=== PATIENT | female | born 1980 | race Caucasian/White ===

== ENCOUNTER 2018-10-19 01:17 | Observation (INO) ==
[2018-10-19] MEDS ORDERED: *HR* LORazepam 2 MG/ML VIAL IM ONE (01:30)
[2018-10-19] MEDS ORDERED: *HR* LORazepam 2 MG/ML VIAL ONE (01:30)
[2018-10-19] MEDS ORDERED: Haloperidol Lactate 5 MG/ML VIAL ONE (01:30)
[2018-10-19] MEDS ORDERED: Haloperidol Lactate 5 MG/ML VIAL IM ONE (01:30)
--- NOTE | 2018-10-19 02:07 | Emergency Department Note ---
Disposition Clinical Impression: Suicidal ideation Disposition: Still a Patient Condition: Good Referrals: NONE,PCP [Primary Care Provider] - Time of Disposition: 04:33 General Adult HPI - General Stated complaint: SI Time Seen by Provider: 10/19/18 01:24 Source: patient, EMS Mode of arrival: EMS Limitations: no limitations Nursing Notes Reviewed: Yes Vital Signs Reviewed: Yes - History of Present Illness HPI Narrative: Patient is a 38-year-old female who is presenting from [facility] for suicidal ideation. Patient with known history of anxiety and depression brought via EMS. On arrival, patient is combative and agitated. History is obtained from EMS report and [facility] report which states that patient was found on scene in the road stating that she wanted to go to [facility] to be with her mother walking into middle of the road trended to get hit by cars. Patient does admit to smoking marijuana denies any other substance abuse. No auditory or visual hallucinations. She was cooperative for transport however with the patient was told that she had to get into a gown, patient became agitated and would not get into the gown. - Related Data Home Medications Medication Instructions Recorded Confirmed Buprenorphine HCl [Subutex] 8 mg SL DAILY 10/18/18 10/18/18 Allergies Allergy/AdvReac Type Severity Reaction Status Date / Time morphine Allergy Hives Verified 10/18/18 23:06 All systems ED: reviewed and negative except as stated. Review of Systems: As Per HPI Limitations: ROS unobtainable due to patients medical condition Past Medical History - Past Medical History Medical history: Reports: no medical history - Social History Smoking Status: Unknown if ever smoked Physical Exam General: Conversant. No apparent distress. Follow commands. Appears stated age. Eyes: PERRL. No scleral icterus. HENT: Normocephalic and atraumatic. Moist mucus membranes. Cardiovascular: Regular rate and rhythm. Normal S1 and S2. No murmurs appreciated. Normal capillary refill. Pulmonary: Normal and equal breath sounds bilaterally, anteriorly and posteriorly. No wheezes, rales, or rhonchi. Not in respiratory distress. Speaks in full sentences. Abdomen: Soft, nondistended, without tenderness. No bruits or masses. No guarding or rebound. Neuro: Alert and oriented x3. No slurred speech. No focal deficits noted. Skin: No rashes noted on visualized skin. Musculoskeletal: No bony abnormalities visualized. Moves all extremities. Psych: Patient does make appropriate eye contact however is agitated and combative. Course Vital Signs Temperature 97.6 F 10/19/18 02:34 Pulse Rate 82 10/19/18 02:34 Respiratory Rate 16 10/19/18 02:34 Blood Pressure 86/61 10/19/18 02:34 O2 Sat by Pulse Oximetry 95 10/19/18 02:34 Temperature 97.6 F 10/19/18 02:34 Pulse Rate 82 10/19/18 02:34 Respiratory Rate 16 10/19/18 02:34 Blood Pressure 86/61 10/19/18 02:34 O2 Sat by Pulse Oximetry 95 10/19/18 02:34 Oxygen Delivery Oxygen Delivery Room Air Medical Decision Making - MDM Narrative Medical decision making narrative: Patient is a 38-year-old female who is presenting from [facility] via EMS for suicidal ideation. On arrival, patient was initially appropriate and cooperative, however when told that she had to get into a gown and she had was pink slip from height, she became agitated and combative, she was unwilling to put the gown on, therefore she had to be physically restrained in order to be given Haldol 5 mg as well as Ativan 2 mg. She was then placed in a gown, she then became much more cooperative, allowed us to obtain her blood work as well as urine for further analysis. At this point in time patient is sleeping and willing to cooperate. Patient is a medically cleared, blood work does show a leukocytosis, this most likely represents an acute stress reaction, do not feel as though there is an infectious source, patient denies fever or chills, without source on examination. Patient is agreeable to IV fluids, she will be given 1 L at this point in time. Following her fluid bolus, patient has been medically cleared, the IV will be removed and 1A will be called for further evaluation. Patient was signed out to the day team, Dr. Mcleod and Dr. Medrano. - Medical Records Medical records reviewed: Yes I reviewed the patient's medical records. - Lab Data Lab results reviewed: Yes I reviewed the patient's lab results. Result diagrams: 10/19/18 03:51 10/19/18 03:51 Lab Results 08/07/19 08/07/19 08/07/19 Range/Units 03:26 03:26 03:26 WBC (4.3-11.1) K/mcL RBC (3.82-4.97) M/mcL Hgb (11.5-15.4) g/dL Hct (35.3-44.9) % MCV (83.0-100.0) fL MCH (28.0-33.3) pg MCHC (31.6-35.5) g/dL RDW (11.5-14.5) % Plt Count (140-400) K/mcL MPV (9.4-12.4) fL Immature Gran % (0-4) % Seg Neutrophils % % Lymphocytes % % Monocytes % % Eosinophils % % Basophils % % Neutrophils # (1.6-8.9) K/mcL Lymphocytes # (0.6-4.6) K/mcL Monocytes # (0.0-1.3) K/mcL Eosinophils # (0.0-0.6) K/mcL Basophils # (0.0-0.2) K/mcL Sodium (136-145) mEq/L Potassium (3.5-5.1) mEq/L Chloride (98-107) mEq/L Carbon Dioxide (23-29) mEq/L BUN (6-20) mg/dL Creatinine (0.60-1.20) mg/dL Est GFR ( Amer) (> 60) Est GFR (Non-Af Amer) (> 60) BUN/Creatinine Ratio (6-26) Glucose (70-105) mg/dL Calculated Osmolality (280-300) Calcium (8.6-10.3) mg/dL Urine Color Dark Yellow (Yellow) Urine Clarity Hazy A (Clear) Urine pH 5.5 (5.0-8.0) pH Units Ur Specific [place] 1.021 (1.010-1.025) Urine Protein Negative (Neg-Trace) mg/dL Urine Glucose (UA) Normal (Normal) mg/dL Urine Ketones Negative (Negative) mg/dL Urine Blood Negative (Negative) Urine Nitrite Negative (Negative) Urine Bilirubin Negative (Negative) Urine Urobilinogen Normal (Normal) mg/dL Ur Leukocyte Esterase Negative (Negative) Urine Microscopic RBC 0-3 (0-3) per hpf Ur Squamous Epith Cells Many H (None-Few) per lpf Urine Bacteria None Seen (None-Few) per hpf Hyaline Casts None Seen (None-Few) per lpf Urine Test Negative (Negative) Salicylates (15.0-30.0) mg/dL Urine Opiates Screen Negative (Aixudw=310) ng/mL Ur Buprenorphine Scrn Positive H (Cutoff=5) ng/mL Acetaminophen (10-20) mcg/mL Ur Barbiturates Screen Negative (Tbpjqc=602) ng/mL Ur Phencyclidine Scrn Negative (Cutoff=25) ng/mL Ur Amphetamines Screen Negative (Cnluhi=0642) ng/mL U Benzodiazepines Scrn Negative (Ssahvq=565) ng/mL Urine Cocaine Screen Negative (Cutoff= 300) ng/mL U Marijuana (THC) Screen Positive H (Cutoff = 50) ng/mL Ur Drug Screen Interp See Below Ethyl Alcohol (Less than 10) mg/dL 10/19/18 10/19/18 Range/Units 03:51 03:51 WBC 24.7 H (4.3-11.1) K/mcL RBC 5.21 H (3.82-4.97) M/mcL Hgb 15.1 (11.5-15.4) g/dL Hct 46.4 H (35.3-44.9) % MCV 89.1 (83.0-100.0) fL MCH 29.0 (28.0-33.3) pg MCHC 32.5 (31.6-35.5) g/dL RDW 14.4 (11.5-14.5) % Plt Count 235 (140-400) K/mcL MPV 12.4 (9.4-12.4) fL Immature Gran % 0.7 (0-4) % Seg Neutrophils % 72.5 % Lymphocytes % 20.4 % Monocytes % 5.6 % Eosinophils % 0.4 % Basophils % 0.4 % Neutrophils # 17.9 H (1.6-8.9) K/mcL Lymphocytes # 5.0 H (0.6-4.6) K/mcL Monocytes # 1.4 H (0.0-1.3) K/mcL Eosinophils # 0.1 (0.0-0.6) K/mcL Basophils # 0.1 (0.0-0.2) K/mcL Sodium 135 L (136-145) mEq/L Potassium 3.3 L (3.5-5.1) mEq/L Chloride 104 (98-107) mEq/L Carbon Dioxide 24 (23-29) mEq/L BUN 5 L (6-20) mg/dL Creatinine 0.52 L (0.60-1.20) mg/dL Est GFR ( Amer) > 60 (> 60) Est GFR (Non-Af Amer) > 60 (> 60) BUN/Creatinine Ratio 10 (6-26) Glucose 118 H (70-105) mg/dL Calculated Osmolality 278 L (280-300) Calcium 9.4 (8.6-10.3) mg/dL Urine Color (Yellow) Urine Clarity (Clear) Urine pH (5.0-8.0) pH Units Ur Specific [place] (1.010-1.025) Urine Protein (Neg-Trace) mg/dL Urine Glucose (UA) (Normal) mg/dL Urine Ketones (Negative) mg/dL Urine Blood (Negative) Urine Nitrite (Negative) Urine Bilirubin (Negative) Urine Urobilinogen (Normal) mg/dL Ur Leukocyte Esterase (Negative) Urine Microscopic RBC (0-3) per hpf Ur Squamous Epith Cells (None-Few) per lpf Urine Bacteria (None-Few) per hpf Hyaline Casts (None-Few) per lpf Urine Test (Negative) Salicylates < 2.5 L (15.0-30.0) mg/dL Urine Opiates Screen (Uyvgiy=619) ng/mL Ur Buprenorphine Scrn (Cutoff=5) ng/mL Acetaminophen < 10 L (10-20) mcg/mL Ur Barbiturates Screen (Cnywrc=354) ng/mL Ur Phencyclidine Scrn (Cutoff=25) ng/mL Ur Amphetamines Screen (Cwdeew=5405) ng/mL U Benzodiazepines Scrn (Acriaz=842) ng/mL Urine Cocaine Screen (Cutoff= 300) ng/mL U Marijuana (THC) Screen (Cutoff = 50) ng/mL Ur Drug Screen Interp Ethyl Alcohol < 10 (Less than 10) mg/dL
[2018-10-19 03:31] LABS: Bilirubin,Urine Negative (Negative); Blood,Urine Negative (Negative); Color,Urine Dark Yellow (Yellow); Glucose,Urine (UA) Normal (Normal); Ketones,Urine Negative (Negative); Leukocyte Esterase,Urine Negative (Negative); Nitrite,Urine Negative (Negative); PH,Urine 5.5 pH Units (5.0-8.0); Protein,Urine Negative (Neg-Trace); Specific Gravity,Urine 1.021 (1.010-1.025); Urobilinogen,Urine Normal (Normal)
[2018-10-19 03:33] LABS: Bacteria,Urine None Seen per hpf (None-Few); Hyaline Casts,Urine None Seen per lpf (None-Few); RBC,Urine 0-3 per hpf (0-3); Squamous Epithelial Cell,Urine Many per lpf (None-Few)
[2018-10-19 03:35] LABS: Clarity,Urine Hazy (Clear)
--- NOTE | 2018-10-19 03:35 | Emergency Department Note ---
Disposition Clinical Impression: Suicidal ideation, Acute psychosis Leukocytosis Qualifiers: Leukocytosis type: unspecified Qualified Code(s): D72.829 - Elevated white blood cell count, unspecified Disposition: Admitted As Inpatient Condition: Good Time of Disposition: 04:33 General Adult HPI - General Chief complaint: ED Psychiatric Symptoms Stated complaint: SI Time Seen by Provider: 10/19/18 01:24 Source: patient - History of Present Illness Pain Scale: 0 - Related Data Home Medications Medication Instructions Recorded Confirmed Unable To Obtain [Unable to Obtain] 10/19/18 10/19/18 Allergies Allergy/AdvReac Type Severity Reaction Status Date / Time meloxicam Allergy Hives Verified 10/19/18 12:27 morphine Allergy Hives Verified 10/19/18 12:27 Naloxone AdvReac See Verified 10/19/18 12:27 Comments Past Medical History - Past Medical History Medical history: Reports: no medical history - Social History Smoking Status: Unknown if ever smoked Physical Exam - General General appearance: alert Course Vital Signs Temperature 97.6 F 10/19/18 02:34 Pulse Rate 82 10/19/18 02:34 Respiratory Rate 16 10/19/18 02:34 Blood Pressure 86/61 10/19/18 02:34 O2 Sat by Pulse Oximetry 95 10/19/18 02:34 Temperature 98 F 10/19/18 15:54 Pulse Rate 91 10/19/18 15:54 Respiratory Rate 16 10/19/18 15:54 Blood Pressure 115/81 10/19/18 15:54 O2 Sat by Pulse Oximetry 95 10/19/18 15:54 Oxygen Delivery Oxygen Delivery Room Air Medical Decision Making - Lab Data Result diagrams: 10/19/18 09:40 10/19/18 03:51 Lab Results 10/19/18 10/19/18 10/19/18 Range/Units 03:26 03:26 03:26 WBC (4.3-11.1) K/mcL RBC (3.82-4.97) M/mcL Hgb (11.5-15.4) g/dL Hct (35.3-44.9) % MCV (83.0-100.0) fL MCH (28.0-33.3) pg MCHC (31.6-35.5) g/dL RDW (11.5-14.5) % Plt Count (140-400) K/mcL MPV (9.4-12.4) fL Immature Gran % (0-4) % Seg Neutrophils % % Lymphocytes % % Monocytes % % Eosinophils % % Basophils % % Neutrophils # (1.6-8.9) K/mcL Lymphocytes # (0.6-4.6) K/mcL Monocytes # (0.0-1.3) K/mcL Eosinophils # (0.0-0.6) K/mcL Basophils # (0.0-0.2) K/mcL Sodium (136-145) mEq/L Potassium (3.5-5.1) mEq/L Chloride (98-107) mEq/L Carbon Dioxide (23-29) mEq/L BUN (6-20) mg/dL Creatinine (0.60-1.20) mg/dL Est GFR ( Amer) (> 60) Est GFR (Non-Af Amer) (> 60) BUN/Creatinine Ratio (6-26) Glucose (70-105) mg/dL Calculated Osmolality (280-300) Lactic Acid (0.5-2.2) mmol/L Calcium (8.6-10.3) mg/dL Creatine Kinase (30-223) Units/L Urine Color Dark Yellow (Yellow) Urine Clarity Hazy A (Clear) Urine pH 5.5 (5.0-8.0) pH Units Ur Specific [place] 1.021 (1.010-1.025) Urine Protein Negative (Neg-Trace) mg/dL Urine Glucose (UA) Normal (Normal) mg/dL Urine Ketones Negative (Negative) mg/dL Urine Blood Negative (Negative) Urine Nitrite Negative (Negative) Urine Bilirubin Negative (Negative) Urine Urobilinogen Normal (Normal) mg/dL Ur Leukocyte Esterase Negative (Negative) Urine Microscopic RBC 0-3 (0-3) per hpf Ur Squamous Epith Cells Many H (None-Few) per lpf Urine Bacteria None Seen (None-Few) per hpf Hyaline Casts None Seen (None-Few) per lpf Urine Test Negative (Negative) Salicylates (15.0-30.0) mg/dL Urine Opiates Screen Negative (Shkcqw=780) ng/mL Ur Buprenorphine Scrn Positive H (Cutoff=5) ng/mL Acetaminophen (10-20) mcg/mL Ur Barbiturates Screen Negative (Hcrjbe=217) ng/mL Ur Phencyclidine Scrn Negative (Cutoff=25) ng/mL Ur Amphetamines Screen Negative (Pfinxe=1180) ng/mL U Benzodiazepines Scrn Negative (Jvuewe=479) ng/mL Urine Cocaine Screen Negative (Cutoff= 300) ng/mL U Marijuana (THC) Screen Positive H (Cutoff = 50) ng/mL Ur Drug Screen Interp See Below Ethyl Alcohol (Less than 10) mg/dL 10/19/18 10/19/18 10/19/18 Range/Units 03:51 03:51 09:40 WBC 24.7 H 16.3 H (4.3-11.1) K/mcL RBC 5.21 H 4.73 (3.82-4.97) M/mcL Hgb 15.1 13.9 (11.5-15.4) g/dL Hct 46.4 H 41.9 (35.3-44.9) % MCV 89.1 88.6 (83.0-100.0) fL MCH 29.0 29.4 (28.0-33.3) pg MCHC 32.5 33.2 (31.6-35.5) g/dL RDW 14.4 14.6 H (11.5-14.5) % Plt Count 235 204 (140-400) K/mcL MPV 12.4 11.3 (9.4-12.4) fL Immature Gran % 0.7 (0-4) % Seg Neutrophils % 72.5 % Lymphocytes % 20.4 % Monocytes % 5.6 % Eosinophils % 0.4 % Basophils % 0.4 % Neutrophils # 17.9 H (1.6-8.9) K/mcL Lymphocytes # 5.0 H (0.6-4.6) K/mcL Monocytes # 1.4 H (0.0-1.3) K/mcL Eosinophils # 0.1 (0.0-0.6) K/mcL Basophils # 0.1 (0.0-0.2) K/mcL Sodium 135 L (136-145) mEq/L Potassium 3.3 L (3.5-5.1) mEq/L Chloride 104 (98-107) mEq/L Carbon Dioxide 24 (23-29) mEq/L BUN 5 L (6-20) mg/dL Creatinine 0.52 L (0.60-1.20) mg/dL Est GFR ( Amer) > 60 (> 60) Est GFR (Non-Af Amer) > 60 (> 60) BUN/Creatinine Ratio 10 (6-26) Glucose 118 H (70-105) mg/dL Calculated Osmolality 278 L (280-300) Lactic Acid (0.5-2.2) mmol/L Calcium 9.4 (8.6-10.3) mg/dL Creatine Kinase (30-223) Units/L Urine Color (Yellow) Urine Clarity (Clear) Urine pH (5.0-8.0) pH Units Ur Specific [place] (1.010-1.025) Urine Protein (Neg-Trace) mg/dL Urine Glucose (UA) (Normal) mg/dL Urine Ketones (Negative) mg/dL Urine Blood (Negative) Urine Nitrite (Negative) Urine Bilirubin (Negative) Urine Urobilinogen (Normal) mg/dL Ur Leukocyte Esterase (Negative) Urine Microscopic RBC (0-3) per hpf Ur Squamous Epith Cells (None-Few) per lpf Urine Bacteria (None-Few) per hpf Hyaline Casts (None-Few) per lpf Urine Test (Negative) Salicylates < 2.5 L (15.0-30.0) mg/dL Urine Opiates Screen (Ehpqki=323) ng/mL Ur Buprenorphine Scrn (Cutoff=5) ng/mL Acetaminophen < 10 L (10-20) mcg/mL Ur Barbiturates Screen (Vvxscq=804) ng/mL Ur Phencyclidine Scrn (Cutoff=25) ng/mL Ur Amphetamines Screen (Hkzlby=0036) ng/mL U Benzodiazepines Scrn (Qhmbth=731) ng/mL Urine Cocaine Screen (Cutoff= 300) ng/mL U Marijuana (THC) Screen (Cutoff = 50) ng/mL Ur Drug Screen Interp Ethyl Alcohol < 10 (Less than 10) mg/dL 10/19/18 10/19/18 Range/Units 09:40 09:40 WBC (4.3-11.1) K/mcL RBC (3.82-4.97) M/mcL Hgb (11.5-15.4) g/dL Hct (35.3-44.9) % MCV (83.0-100.0) fL MCH (28.0-33.3) pg MCHC (31.6-35.5) g/dL RDW (11.5-14.5) % Plt Count (140-400) K/mcL MPV (9.4-12.4) fL Immature Gran % (0-4) % Seg Neutrophils % % Lymphocytes % % Monocytes % % Eosinophils % % Basophils % % Neutrophils # (1.6-8.9) K/mcL Lymphocytes # (0.6-4.6) K/mcL Monocytes # (0.0-1.3) K/mcL Eosinophils # (0.0-0.6) K/mcL Basophils # (0.0-0.2) K/mcL Sodium (136-145) mEq/L Potassium (3.5-5.1) mEq/L Chloride (98-107) mEq/L Carbon Dioxide (23-29) mEq/L BUN (6-20) mg/dL Creatinine (0.60-1.20) mg/dL Est GFR ( Amer) (> 60) Est GFR (Non-Af Amer) (> 60) BUN/Creatinine Ratio (6-26) Glucose (70-105) mg/dL Calculated Osmolality (280-300) Lactic Acid 1.0 (0.5-2.2) mmol/L Calcium (8.6-10.3) mg/dL Creatine Kinase 23 L (30-223) Units/L Urine Color (Yellow) Urine Clarity (Clear) Urine pH (5.0-8.0) pH Units Ur Specific [place] (1.010-1.025) Urine Protein (Neg-Trace) mg/dL Urine Glucose (UA) (Normal) mg/dL Urine Ketones (Negative) mg/dL Urine Blood (Negative) Urine Nitrite (Negative) Urine Bilirubin (Negative) Urine Urobilinogen (Normal) mg/dL Ur Leukocyte Esterase (Negative) Urine Microscopic RBC (0-3) per hpf Ur Squamous Epith Cells (None-Few) per lpf Urine Bacteria (None-Few) per hpf Hyaline Casts (None-Few) per lpf Urine Test (Negative) Salicylates (15.0-30.0) mg/dL Urine Opiates Screen (Ifistr=353) ng/mL Ur Buprenorphine Scrn (Cutoff=5) ng/mL Acetaminophen (10-20) mcg/mL Ur Barbiturates Screen (Doveqi=652) ng/mL Ur Phencyclidine Scrn (Cutoff=25) ng/mL Ur Amphetamines Screen (Mqiqzh=0093) ng/mL U Benzodiazepines Scrn (Givbjd=008) ng/mL Urine Cocaine Screen (Cutoff= 300) ng/mL U Marijuana (THC) Screen (Cutoff = 50) ng/mL Ur Drug Screen Interp Ethyl Alcohol (Less than 10) mg/dL Attestation Statement - Attestation Attestation: I examined this patient and my medical decision-making was reviewed with the Resident Physician. I agree with the documented findings, disposition and treat ment plan as described except to the extent set forth below. Patient is a 38-year-old female that presents to the emergency department with chief complaint of suicidal ideation. The [place] car. The patient was brought to [facility] department and transferred to our facility for further psychiatric evaluation Physical exam patient is awake alert non-cooperative Medical decision management the patient received medications to allow for a safe evaluation of the patient. The patient will undergo medical clearance and then will undergo a Ia evaluation
[2018-10-19 03:47] LABS: Amphetamine Screen,Urine Negative ng/mL (Cutoff=1000); Barbiturate Screen,Urine Negative ng/mL (Cutoff=200); Benzodiazepines Screen,Urine Negative ng/mL (Cutoff=200); Cannabinoid Screen,Urine Positive ng/mL (Cutoff = 50); Cocaine Screen,Urine Negative ng/mL (Cutoff= 300); Opiate Screen,Urine Negative ng/mL (Cutoff=300); Phencyclidine Screen,Urine Negative ng/mL (Cutoff=25)
[2018-10-19 04:10] LABS: Basophils # 0.1 K/mcL (0.0-0.2); Basophils % 0.4 %; Eosinophils # 0.1 K/mcL (0.0-0.6); Eosinophils % 0.4 %; Hematocrit 46.4 % (35.3-44.9); Hemoglobin 15.1 g/dL (11.5-15.4); Immature Granulocytes % 0.7 % (0-4); Lymphocytes % 20.4 %; Mean Corpuscular HGB Conc 32.5 g/dL (31.6-35.5); Mean Corpuscular Volume 89.1 fL (83.0-100.0); Mean Platelet Volume 12.4 fL (9.4-12.4); Monocytes # 1.4 K/mcL (0.0-1.3); Monocytes % 5.6 %; Neutrophils # 17.9 K/mcL (1.6-8.9); Platelet Count 235 K/mcL (140-400); Red Blood Count 5.21 M/mcL (3.82-4.97); Red Cell Distribution Width 14.4 % (11.5-14.5); Segmented Neutrophils % 72.5 %; White Blood Count 24.7 K/mcL (4.3-11.1)
[2018-10-19 04:20] LABS: Acetaminophen < 10 mcg/mL (10-20); BUN/Creatinine Ratio 10 (6-26); Blood Urea Nitrogen 5 mg/dL (6-20); Calcium 9.4 mg/dL (8.6-10.3); Carbon Dioxide 24 mEq/L (23-29); Chloride 104 mEq/L (98-107); Ethanol < 10 mg/dL (Less than 10); Glucose 118 mg/dL (70-105); Osmolality,Calculated 278 (280-300); Potassium 3.3 mEq/L (3.5-5.1); Salicylate < 2.5 mg/dL (15.0-30.0); Sodium 135 mEq/L (136-145); eGFR For African Americans > 60 (> 60); eGFR For Non-African Americans > 60 (> 60)
[2018-10-19] MEDS ORDERED: 0.9 % Sodium Chloride 1,000 ML IVC ONE (05:10)
--- NOTE | 2018-10-19 07:06 | Emergency Department Note ---
Disposition Clinical Impression: Suicidal ideation, Acute psychosis Leukocytosis Qualifiers: Leukocytosis type: unspecified Qualified Code(s): D72.829 - Elevated white blood cell count, unspecified Disposition: Admitted As Inpatient Condition: Good Referrals: NONE,PCP [Primary Care Provider] - Time of Disposition: 09:26 General Adult HPI - General Chief complaint: ED Psychiatric Symptoms Stated complaint: SI Time Seen by Provider: 10/19/18 01:24 Source: patient, EMS Mode of arrival: EMS Limitations: no limitations - History of Present Illness Pain Scale: 0 - Related Data Home Medications Medication Instructions Recorded Confirmed Buprenorphine HCl [Subutex] 8 mg SL DAILY 10/18/18 10/18/18 Allergies Allergy/AdvReac Type Severity Reaction Status Date / Time morphine Allergy Hives Verified 10/18/18 23:06 Past Medical History - Past Medical History Medical history: Reports: no medical history - Social History Smoking Status: Unknown if ever smoked Physical Exam - General Limitations: no limitations General appearance: alert Course Vital Signs Temperature 97.6 F 10/19/18 02:34 Pulse Rate 82 10/19/18 02:34 Respiratory Rate 16 10/19/18 02:34 Blood Pressure 86/61 10/19/18 02:34 O2 Sat by Pulse Oximetry 95 10/19/18 02:34 Temperature 98.1 F 10/19/18 08:35 Pulse Rate 72 10/19/18 08:35 Respiratory Rate 13 10/19/18 08:35 Blood Pressure 97/58 10/19/18 08:35 O2 Sat by Pulse Oximetry 96 10/19/18 08:35 Oxygen Delivery Oxygen Delivery Room Air Medical Decision Making - Lab Data Result diagrams: 10/19/18 03:51 10/19/18 03:51 Lab Results 10/19/18 10/19/18 10/19/18 Range/Units 03:26 03:26 03:26 WBC (4.3-11.1) K/mcL RBC (3.82-4.97) M/mcL Hgb (11.5-15.4) g/dL Hct (35.3-44.9) % MCV (83.0-100.0) fL MCH (28.0-33.3) pg MCHC (31.6-35.5) g/dL RDW (11.5-14.5) % Plt Count (140-400) K/mcL MPV (9.4-12.4) fL Immature Gran % (0-4) % Seg Neutrophils % % Lymphocytes % % Monocytes % % Eosinophils % % Basophils % % Neutrophils # (1.6-8.9) K/mcL Lymphocytes # (0.6-4.6) K/mcL Monocytes # (0.0-1.3) K/mcL Eosinophils # (0.0-0.6) K/mcL Basophils # (0.0-0.2) K/mcL Sodium (136-145) mEq/L Potassium (3.5-5.1) mEq/L Chloride (98-107) mEq/L Carbon Dioxide (23-29) mEq/L BUN (6-20) mg/dL Creatinine (0.60-1.20) mg/dL Est GFR ( Amer) (> 60) Est GFR (Non-Af Amer) (> 60) BUN/Creatinine Ratio (6-26) Glucose (70-105) mg/dL Calculated Osmolality (280-300) Calcium (8.6-10.3) mg/dL Urine Color Dark Yellow (Yellow) Urine Clarity Hazy A (Clear) Urine pH 5.5 (5.0-8.0) pH Units Ur Specific [place] 1.021 (1.010-1.025) Urine Protein Negative (Neg-Trace) mg/dL Urine Glucose (UA) Normal (Normal) mg/dL Urine Ketones Negative (Negative) mg/dL Urine Blood Negative (Negative) Urine Nitrite Negative (Negative) Urine Bilirubin Negative (Negative) Urine Urobilinogen Normal (Normal) mg/dL Ur Leukocyte Esterase Negative (Negative) Urine Microscopic RBC 0-3 (0-3) per hpf Ur Squamous Epith Cells Many H (None-Few) per lpf Urine Bacteria None Seen (None-Few) per hpf Hyaline Casts None Seen (None-Few) per lpf Urine Test Negative (Negative) Salicylates (15.0-30.0) mg/dL Urine Opiates Screen Negative (Frfsfp=915) ng/mL Ur Buprenorphine Scrn Positive H (Cutoff=5) ng/mL Acetaminophen (10-20) mcg/mL Ur Barbiturates Screen Negative (Dmzxca=145) ng/mL Ur Phencyclidine Scrn Negative (Cutoff=25) ng/mL Ur Amphetamines Screen Negative (Xcmpyf=4225) ng/mL U Benzodiazepines Scrn Negative (Yzbvfj=798) ng/mL Urine Cocaine Screen Negative (Cutoff= 300) ng/mL U Marijuana (THC) Screen Positive H (Cutoff = 50) ng/mL Ur Drug Screen Interp See Below Ethyl Alcohol (Less than 10) mg/dL 10/19/18 10/19/18 Range/Units 03:51 03:51 WBC 24.7 H (4.3-11.1) K/mcL RBC 5.21 H (3.82-4.97) M/mcL Hgb 15.1 (11.5-15.4) g/dL Hct 46.4 H (35.3-44.9) % MCV 89.1 (83.0-100.0) fL MCH 29.0 (28.0-33.3) pg MCHC 32.5 (31.6-35.5) g/dL RDW 14.4 (11.5-14.5) % Plt Count 235 (140-400) K/mcL MPV 12.4 (9.4-12.4) fL Immature Gran % 0.7 (0-4) % Seg Neutrophils % 72.5 % Lymphocytes % 20.4 % Monocytes % 5.6 % Eosinophils % 0.4 % Basophils % 0.4 % Neutrophils # 17.9 H (1.6-8.9) K/mcL Lymphocytes # 5.0 H (0.6-4.6) K/mcL Monocytes # 1.4 H (0.0-1.3) K/mcL Eosinophils # 0.1 (0.0-0.6) K/mcL Basophils # 0.1 (0.0-0.2) K/mcL Sodium 135 L (136-145) mEq/L Potassium 3.3 L (3.5-5.1) mEq/L Chloride 104 (98-107) mEq/L Carbon Dioxide 24 (23-29) mEq/L BUN 5 L (6-20) mg/dL Creatinine 0.52 L (0.60-1.20) mg/dL Est GFR ( Amer) > 60 (> 60) Est GFR (Non-Af Amer) > 60 (> 60) BUN/Creatinine Ratio 10 (6-26) Glucose 118 H (70-105) mg/dL Calculated Osmolality 278 L (280-300) Calcium 9.4 (8.6-10.3) mg/dL Urine Color (Yellow) Urine Clarity (Clear) Urine pH (5.0-8.0) pH Units Ur Specific [place] (1.010-1.025) Urine Protein (Neg-Trace) mg/dL Urine Glucose (UA) (Normal) mg/dL Urine Ketones (Negative) mg/dL Urine Blood (Negative) Urine Nitrite (Negative) Urine Bilirubin (Negative) Urine Urobilinogen (Normal) mg/dL Ur Leukocyte Esterase (Negative) Urine Microscopic RBC (0-3) per hpf Ur Squamous Epith Cells (None-Few) per lpf Urine Bacteria (None-Few) per hpf Hyaline Casts (None-Few) per lpf Urine Test (Negative) Salicylates < 2.5 L (15.0-30.0) mg/dL Urine Opiates Screen (Vppzyy=340) ng/mL Ur Buprenorphine Scrn (Cutoff=5) ng/mL Acetaminophen < 10 L (10-20) mcg/mL Ur Barbiturates Screen (Qcoiks=734) ng/mL Ur Phencyclidine Scrn (Cutoff=25) ng/mL Ur Amphetamines Screen (Wswupy=7516) ng/mL U Benzodiazepines Scrn (Avlsph=198) ng/mL Urine Cocaine Screen (Cutoff= 300) ng/mL U Marijuana (THC) Screen (Cutoff = 50) ng/mL Ur Drug Screen Interp Ethyl Alcohol < 10 (Less than 10) mg/dL Attestation Statement - Attestation Attestation: Care of patient assumed from Dr. Oconnor at 7 AM pending removal of IV and mental health evaluation. The patient was sent from an outside facility after being found with bizarre behavior. She is sleeping at the time of my exam. Labs reviewed by me indicating a leukocytosis which was thought to be a demarcation stress response by Dr. Oconnor 09:24: 1A recs medicine admission due to leukocytosis. Will discuss case with hospitalist
[2018-10-19 09:51] LABS: Hematocrit 41.9 % (35.3-44.9); Hemoglobin 13.9 g/dL (11.5-15.4); Mean Corpuscular HGB Conc 33.2 g/dL (31.6-35.5); Mean Corpuscular Hemoglobin 29.4 pg (28.0-33.3); Mean Corpuscular Volume 88.6 fL (83.0-100.0); Mean Platelet Volume 11.3 fL (9.4-12.4); Platelet Count 204 K/mcL (140-400); Red Blood Count 4.73 M/mcL (3.82-4.97); Red Cell Distribution Width 14.6 % (11.5-14.5); White Blood Count 16.3 K/mcL (4.3-11.1)
[2018-10-19] MEDS ORDERED: Naloxone 0.4 MG/ML INJ IVP PRN (10:28)
--- NOTE | 2018-10-19 10:31 | Internal Med History&Physical ---
Date of Encounter: 10/19/18 Time of Encounter: 09:30 Internal Medicine - H&P: HPI Chief complaint: psychosis Admitted From: Intrahospital Transfer Plans for Post Hospital Care: Home History of present illness: Ms. Vilchis is a 38 year old female with an unknown past medical hx who presented from [place] in transfer for psychiatric evaluation. She was brought there by EMS after she walked [place] traffic [place] stating she wanted to go to [facility] to see her mother. Event was witnessed by her daughter whom was present. History obtained is from [place] chart review as pt is not cooperative with ED staff or myself here in providing addl details. UDS + THC and pt daughter notes they smoke marijuana in hours preceeding this episode. 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 She states her medsd as [facility]. She told [place] ED she was nauseous and it was because she was . She was transferred to [facility] where she was combative and agitated requiring IV atival + haldol. Psych was contacted and recommened work up for leukocytosis and will see in consultation once infectious etiology ruled out. She is awake with sitter at bedside, no family present. She is somewhat cooperative with HPI gathering. Notes she had to be brought in bc her daughter was freaking out". Admits to using marijuana and tells me she used to abuse heroin and crack. Denies use. States got her weed from same supplier. She pauses with some answers and needs to be redirected to answer questions, some she refuses to answer. Admits she has seen a psychiatrist in the past, but won't say for what. Denies si/hi/does not answer when asked if AVH. She does answer all medical ros questions. cv- no cp, pressure, sob, palpitations pulm- no sob, cough, wheezing, sputum abd- no abd pain, n/v/d, no constipation gu- no dysuria, hematuria, vaginal bleeding or discharge, no change in freq neuro- no martin, vision changes, stiff neck, dizziness, weakness, numbness or tingling Past Med Surg Social Fam HX - Past Medical History Source: unable to obtain (pt psychosis and refusal to answer questions) Psychiatric history: other (unknown) - Past Surgical History Additional surgical history: Right ovary removed - Social History Smoking Status: Unknown if ever smoked Alcohol use: unknown Drug use: unknown, marijuana - Family History Father Living Status: - Additional Family History Additional family history: reviewed and pt does not give information Internal Medicine - H&P: Meds Unable To Obtain [Unable to Obtain] 10/19/18 [History] Allergy/AdvReac Type Severity Reaction Status Date / Time meloxicam Allergy Hives Verified 10/19/18 12:27 morphine Allergy Hives Verified 10/19/18 12:27 Naloxone AdvReac See Verified 10/19/18 12:27 Comments All Systems PM: A 10-system review of systems was performed and is negative for pertinent findings except as documented above in the HPI. - Constitutional Vitals: Temp Pulse Resp BP Pulse Ox 98.1 F 72 13 97/58 96 10/19/18 08:35 10/19/18 08:35 10/19/18 08:35 10/19/18 08:35 10/19/18 08:35 Exam: General: somnolent but awakes to name, appears stated age HEENT:EOM intact, pupils equal, round, moist mucus membranes Neck: supple, trachea midline Cardiovascular:regular rate and rhythm, normal S1 & S2, no rubs, murmurs or gallops. radial pulses 2+, no lower extremity edema Lungs:Normal breath sounds, no wheezes, or crackles. Normal respiratory effort on room air Abdomen:Soft, non-tender, non-distended, no rigidity, + bowel sounds Neurological: AAOxperson, hospital, CN grossly intact, strength intact and equal throughout Skin:Normal color, no rash, no pallor, no jaundice Internal Med - H&P Results - Labs CBC & Chem 7: 10/19/18 09:40 10/19/18 03:51 Labs: Short CBC 10/19/18 10/19/18 Range/Units 03:51 09:40 WBC 24.7 H 16.3 H (4.3-11.1) K/mcL Hgb 15.1 13.9 (11.5-15.4) g/dL Hct 46.4 H 41.9 (35.3-44.9) % Plt Count 235 204 (140-400) K/mcL Neutrophils # 17.9 H (1.6-8.9) K/mcL BMP 10/19/18 03:51 Sodium 135 L Potassium 3.3 L Chloride 104 Carbon Dioxide 24 BUN 5 L Creatinine 0.52 L Glucose 118 H Calcium 9.4 Urine 10/19/18 Range/Units 03:26 Urine Color Dark Yellow (Yellow) Urine Clarity Hazy A (Clear) Urine pH 5.5 (5.0-8.0) pH Units Ur Specific [place] 1.021 (1.010-1.025) Urine Protein Negative (Neg-Trace) mg/dL Urine Glucose (UA) Normal (Normal) mg/dL - Impressions ITS Impressions Chest X-Ray 10/19/18 09:40 IMPRESSION: No acute process. D/ / Ruddy Danielle MD / Ruddy Danielle MD Interpreting Provider: Ruddy Danielle MD - Assessment and Plan (1) Acute psychosis Current Visit: Yes Status: Acute (2) Suicidal ideation Current Visit: Yes Status: Acute (3) Leukocytosis Current Visit: Yes Status: Acute Qualifiers: Leukocytosis type: unspecified Qualified Code(s): D72.829 - Elevated white blood cell count, unspecified (4) Hypokalemia Current Visit: Yes Status: Acute (5) Marijuana abuse Current Visit: Yes Status: Acute - Summary of Assessment and Plan Summary of Assessment and Plan: Acute Psychosis Suicidal ideation- witnessed by daughter to have walked into traffic stating she wanted to go to [facility] Unknown prior psych hx as no records available or family to provide addl history, pt not cooperating with giving history There are no metabolic findings to suggest metabolic cause of psychosis This may be drug related with UDS + THC -sitter, suicide precautions, is pink slipped (in ED) -psych consulted by ED and will see in eval when leukocytosis evaluated -neuro checks -check CT head Leukocytosis, at this time suspected to be reactive significantly down trended with IVFs, afebrile UA no sign infection, CXR unremarkable, no noted diarrhea/abd pain, rash or wounds, there is not s/s of neuro infectious process at this time -cont IV hydration -if develops fever will broaden work up, no indication for LP at this time Hypokalemia 3.3 -IV Kcl 40 meq ordered -repeat in am, check mag Upreg test negative awaiting home med rec full code pink slipped
[2018-10-19] MEDS: Ringers Solution, Lactated 1,000 ML IVC SCH (12:45)
[2018-10-19] MEDS: Nicotine 21 MG PATCH.TD24 TD SCH (16:05)
[2018-10-20] MEDS: Ringers Solution, Lactated 1,000 ML IVC SCH (02:50)
[2018-10-20 04:10] LABS: Basophils # 0.1 K/mcL (0.0-0.2); Basophils % 0.7 %; Eosinophils # 0.3 K/mcL (0.0-0.6); Eosinophils % 2.3 %; Hematocrit 44.1 % (35.3-44.9); Hemoglobin 14.2 g/dL (11.5-15.4); Immature Granulocytes % 0.4 % (0-4); Lymphocytes # 4.8 K/mcL (0.6-4.6); Lymphocytes % 39.9 %; Mean Corpuscular HGB Conc 32.2 g/dL (31.6-35.5); Mean Corpuscular Hemoglobin 28.7 pg (28.0-33.3); Mean Corpuscular Volume 89.1 fL (83.0-100.0); Monocytes % 7.9 %; Neutrophils # 5.9 K/mcL (1.6-8.9); Platelet Count 201 K/mcL (140-400); Red Blood Count 4.95 M/mcL (3.82-4.97); Red Cell Distribution Width 14.6 % (11.5-14.5); Segmented Neutrophils % 48.8 %; White Blood Count 12.1 K/mcL (4.3-11.1)
[2018-10-20 04:27] LABS: BUN/Creatinine Ratio 11 (6-26); Blood Urea Nitrogen 6 mg/dL (6-20); Calcium 8.8 mg/dL (8.6-10.3); Carbon Dioxide 27 mEq/L (23-29); Chloride 106 mEq/L (98-107); Glucose 99 mg/dL (70-105); Magnesium 1.9 mg/dL (1.6-2.6); Osmolality,Calculated 284 (280-300); Potassium 3.9 mEq/L (3.5-5.1); Sodium 138 mEq/L (136-145); eGFR For African Americans > 60 (> 60); eGFR For Non-African Americans > 60 (> 60)
[2018-10-20] MEDS ORDERED: Ondansetron 4 MG/2 ML VIAL IVP ONE (06:35)
[2018-10-20] MEDS: Nicotine 21 MG PATCH.TD24 TD SCH (07:55)
[2018-10-20 08:00] VITALS: BP 113/78
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
--- NOTE | 2018-10-20 11:18 | Discharge Summary ---
Date of Encounter: 10/20/18 Time of Encounter: 11:12 - Discharge Diagnosis (1) Acute psychosis Priority: Primary Status: Acute Hospital course: Ms. Vilchis is a 38 year old female PMH of heroin abuse. Who presented from [place] in transfer for psychiatric evaluation. She was brought there by EMS after she walked [place] traffic [place] stating she wanted to go to [facility] to see her mother. Patient was admitted to the hospital due to acute psychosis, and leukocytosis. Patient afebrile, hemodynamically stable, and leukocyte count trending down. Patient is hemodynamically stable to be discharged. - Time Spent with Patient Total time spent providing and/or coordinating discharge services: Time spent: Greater than 30 minutes (35) - Discharge Medications Prescriptions: No Action No Known Home Drugs 1 each .ROUTE AD each Home Medications: No Known Home Drugs 10/20/18 [History] Allergies/Adverse Reactions: Allergy/AdvReac Type Severity Reaction Status Date / Time meloxicam Allergy Hives Verified 10/19/18 12:27 morphine Allergy Hives Verified 10/19/18 12:27 Naloxone AdvReac See Verified 10/19/18 12:27 Comments Date of admission: 10/19/18 09:58 Primary care physician: PCP NONE Consults: 10/19/18 10:27 Consult to Psychiatry [CONS] Routine Consulting Provider: Psychiatry Jaycee Reason consult: Psychosis Other reason and/or additional details: called by ED Center Slip initiated date and time: in ED Call Completed: Yes - Constitutional Vitals: Temp Pulse Resp BP Pulse Ox 97.9 F 78 16 113/78 97 10/20/18 07:00 10/20/18 07:00 10/20/18 07:00 10/20/18 07:00 10/20/18 07:00 Exam: Vitals: Reviewed. General: Alert and oriented x4. In no distress Skin: Normal color, no rash, no lesions. HEENT: EOM, pupils equal, round and reactive. Cardiovascular: RRR, normal S1 & S2, no rubs, murmurs or gallops. Lungs: CTA b/l, no wheezes or crackles. Abdomen: Obese, soft, non-tender, no rigidity. Extremities: No deformity, no edema or tenderness, no joint swelling or clubbing. Neurological: Normal cognition and motor skills. Rest of the physical exam is non contributory - Patient Status Disposition: Home, Self-Care Condition: Good Functional capacity at discharge: independent ambulation Overall status at discharge: patient is progressing back to baseline - Discharge Instructions Follow Up With: NONE,PCP [Primary Care Provider] - Forms: ED Satisfaction Letter - Diet and Activity Activity: resume usual activities as tolerated Diet: advance to your usual diet
== END 2018-10-20 13:32 | disposition home or self-care (01) ==
LOC: 3ANU 01:17 → EMEROOARM 01:17 → MERGE 09:58 → 3ANU 10:42
PROVIDERS: ADMIT Internal Medicine; ATTEND Internal Medicine

== ENCOUNTER 2021-09-02 16:18 | Inpatient (IN) ==
[2021-09-02 17:06] LABS: Basophils # 0.1 K/mcL (0.0-0.2); Basophils % 0.4 %; Eosinophils # 0.1 K/mcL (0.0-0.6); Eosinophils % 0.5 %; Hematocrit 20.5 % (35.3-44.9); Immature Granulocytes % 2.4 % (0-4); Lymphocytes # 3.5 K/mcL (0.6-4.6); Lymphocytes % 17.1 %; Mean Corpuscular HGB Conc 29.3 g/dL (31.6-35.5); Mean Corpuscular Hemoglobin 18.5 pg (28.0-33.3); Mean Corpuscular Volume 63.3 fL (83.0-100.0); Monocytes % 4.7 %; Neutrophils # 15.2 K/mcL (1.6-8.9); Nucleated Red Blood Cells 0.6 /100 WBC (0); Platelet Count 305 K/mcL (140-400); Red Blood Count 3.24 M/mcL (3.82-4.97); Red Cell Distribution Width 34.8 % (11.5-14.5); Segmented Neutrophils % 74.9 %; White Blood Count 20.3 K/mcL (4.3-11.1)
[2021-09-02 17:25] LABS: BUN/Creatinine Ratio 7 (6-26); Blood Urea Nitrogen 4 mg/dL (6-20); Calcium 8.5 mg/dL (8.6-10.3); Carbon Dioxide 29 mEq/L (23-29); Chloride 91 mEq/L (98-107); Glucose 363 mg/dL (70-105); Osmolality,Calculated 278 (280-300); Potassium 3.2 mEq/L (3.5-5.1); Sodium 128 mEq/L (136-145); eGFR For African Americans > 60 (> 60); eGFR For Non-African Americans > 60 (> 60)
[2021-09-02 17:28] LABS: Anisocytosis 3+ (Not Present); Microcytosis Present (Not Present)
[2021-09-02] MEDS ORDERED: 0.9 % Sodium Chloride 1,000 ML IVC ONE (17:50)
[2021-09-02] MEDS ORDERED: Pantoprazole 40 MG VIAL IVP ONE (17:55)
[2021-09-02 18:21] LABS: INR 1.4; Prothrombin Time 15.8 Seconds (9.4-12.1)
[2021-09-02 18:24] LABS: Activated Partial Thrombo Time 32.4 Seconds (26.0-36.0)
[2021-09-02] MEDS: Potassium Chloride Elixir 20 MEQ/15 ML UDC PO ONE ×2 (18:58→19:29)
[2021-09-02] MEDS ORDERED: Iopamidol - 370 500 ML MLS IVP ONE (19:13)
[2021-09-02] MEDS: Nicotine 2 MG GUM BC PRN ×2 (19:32→22:11)
[2021-09-02] MEDS ORDERED: Ondansetron 4 MG/2 ML VIAL IVP PRN (19:38)
[2021-09-02] MEDS ORDERED: Melatonin 3 MG TABLET PO PRN (19:38)
[2021-09-02] MEDS ORDERED: Naloxone 0.4 MG/ML INJ IVP PRN (19:38)
[2021-09-02] MEDS ORDERED: Acetaminophen 325 MG TABLET PO PRN (19:38)
[2021-09-02] MEDS ORDERED: *HR* HYDROcodone/Acet 5/325 mg TABLET PO PRN (19:38)
[2021-09-02] MEDS: Pantoprazole 40 MG in 0.9 % Sodium Chloride Mini Bag 100 ML IVC SCH (20:25)
[2021-09-02] MEDS ORDERED: Calcium Gluconate 1gm/50mL 1 GM/50 ML BAG IVPB ONE (20:44)
[2021-09-02] MEDS ORDERED: *HR* Dextrose 50 % in Water (Syg) 50 ML SYRINGE IVP PRN (20:45)
[2021-09-02] MEDS ORDERED: D5% in Water 1,000 ML IVC PRN (20:45)
[2021-09-02] MEDS ORDERED: Dextrose Gel 15 GM/37.5 ML TUBE PO PRN ×2 (20:45)
[2021-09-02] MEDS ORDERED: 0.9 % Sodium Chloride 250 ML IVC ONE (20:57)
[2021-09-02] MEDS ORDERED: SODIUM CHLORIDE/NAHCO3/KCL/PEG 4,000 ML SOLN.RECON PO ONE (21:00)
[2021-09-02] MEDS ORDERED: Saliva Stimulant 44.3ml BOTTLE PO PRN (23:35)
[2021-09-03] MEDS: Pantoprazole 40 MG in 0.9 % Sodium Chloride Mini Bag 100 ML IVC SCH ×5 (00:18→22:35)
[2021-09-03] MEDS: 0.9 % Sodium Chloride 1,000 ML IVC SCH ×2 (00:58→12:21)
[2021-09-03] MEDS ORDERED: Ringers Solution, Lactated 1,000 ML IVC ONE (01:39)
[2021-09-03] MEDS: Nicotine 2 MG GUM BC PRN ×4 (03:38→23:19)
[2021-09-03 04:01] LABS: Hematocrit 20.8 % (35.3-44.9)
[2021-09-03 04:03] LABS: Basophils # 0.1 K/mcL (0.0-0.2); Basophils % 0.6 %; Eosinophils # 0.2 K/mcL (0.0-0.6); Eosinophils % 1.1 %; Hemoglobin 6.1 g/dL (11.5-15.4); Immature Granulocytes % 1.2 % (0-4); Immature Platelets 10.8 % (1.1-6.1); Immature Reticulocyte % 1.4 % (11.0-38.0); Lymphocytes # 4.9 K/mcL (0.6-4.6); Lymphocytes % 31.4 %; Mean Corpuscular HGB Conc 29.3 g/dL (31.6-35.5); Mean Corpuscular Hemoglobin 19.6 pg (28.0-33.3); Mean Corpuscular Volume 66.9 fL (83.0-100.0); Monocytes # 0.9 K/mcL (0.0-1.3); Monocytes % 5.5 %; Nucleated Red Blood Cells 0.5 /100 WBC (0); Platelet Count 249 K/mcL (140-400); Red Blood Count 3.11 M/mcL (3.82-4.97); Red Cell Distribution Width 34.3 % (11.5-14.5); Retculocyte # 0.01 M/mcL (0.05-0.10); Reticulocyte % 0.3 % (1.6-2.8); Segmented Neutrophils % 60.2 %; White Blood Count 15.5 K/mcL (4.3-11.1)
[2021-09-03 04:10] LABS: INR 1.4; Prothrombin Time 15.5 Seconds (9.4-12.1)
[2021-09-03 04:13] LABS: Activated Partial Thrombo Time 31.6 Seconds (26.0-36.0)
[2021-09-03 04:18] LABS: Estimated Average Glucose 206 mg/dl; Hemoglobin A1C 8.8 %
[2021-09-03 04:22] LABS: % Iron Saturation 93 % (15-50); Iron 299 mcg/dL (50-170); Lactate Dehydrogenase 200 Units/L (140-271); Transferrin 230 mg/dL (203-362)
[2021-09-03 04:38] LABS: Folate 1.4 ng/mL (3.0-16.0)
[2021-09-03 04:40] LABS: Ferritin 428 ng/mL (10-120)
[2021-09-03 04:43] LABS: Neutrophils # 9.3 K/mcL (1.6-8.9)
[2021-09-03 04:47] LABS: Alanine Aminotransferase 9 Units/L (7-52); Albumin 2.8 g/dL (3.5-5.7); Albumin/Globulin Ratio 0.7 (1.1-2.2); Alkaline Phosphatase 137 Units/L (34-104); Aspartate Amino Transferase 21 Units/L (13-39); BUN/Creatinine Ratio 9 (6-26); Blood Urea Nitrogen 4 mg/dL (6-20); Calcium 8.2 mg/dL (8.6-10.3); Carbon Dioxide 30 mEq/L (23-29); Chloride 99 mEq/L (98-107); Glucose 162 mg/dL (70-105); Magnesium 1.8 mg/dL (1.6-2.6); Osmolality,Calculated 278 (280-300); Phosphorous 1.9 mg/dL (2.7-4.5); Potassium 3.6 mEq/L (3.5-5.1); Sodium 134 mEq/L (136-145); Total Protein 6.8 g/dL (6.4-8.9); eGFR For African Americans > 60 (> 60); eGFR For Non-African Americans > 60 (> 60)
[2021-09-03 05:03] LABS: Anisocytosis 3+ (Not Present); Hypochromasia Present (Not Present); Microcytosis Present (Not Present)
[2021-09-03] MEDS: Calcium Gluconate 1gm/50mL 1 GM/50 ML BAG IVPB SCH ×2 (05:32→08:36)
[2021-09-03] MEDS ORDERED: 0.9 % Sodium Chloride 250 ML ONE ×2 (07:45→18:49)
[2021-09-03] MEDS: *HR* Buprenorphine HCl 8 MG TAB.SUBL SL SCH (08:16)
[2021-09-03] MEDS: Nicotine 21 MG PATCH.TD24 TD SCH (09:22)
[2021-09-03] MEDS ORDERED: Potassium Phosphate 44 MEQ in 0.9 % Sodium Chloride 250 ML IVPB ONE (10:17)
[2021-09-03 14:33] LABS: Eosinophils % 1.6 %; Nucleated Red Blood Cells 0.5 /100 WBC (0); Red Cell Distribution Width 33.3 % (11.5-14.5)
[2021-09-03 14:35] LABS: Basophils # 0.1 K/mcL (0.0-0.2); Basophils % 0.6 %; Eosinophils # 0.2 K/mcL (0.0-0.6); Hematocrit 21.8 % (35.3-44.9); Hemoglobin 6.8 g/dL (11.5-15.4); Immature Granulocytes % 1.4 % (0-4); Immature Platelets 9.2 % (1.1-6.1); Lymphocytes # 3.2 K/mcL (0.6-4.6); Lymphocytes % 25.1 %; Mean Corpuscular HGB Conc 31.2 g/dL (31.6-35.5); Mean Corpuscular Hemoglobin 22.1 pg (28.0-33.3); Monocytes # 0.9 K/mcL (0.0-1.3); Monocytes % 6.7 %; Neutrophils # 8.3 K/mcL (1.6-8.9); Platelet Count 200 K/mcL (140-400); Red Blood Count 3.07 M/mcL (3.82-4.97); Segmented Neutrophils % 64.6 %; White Blood Count 12.8 K/mcL (4.3-11.1)
[2021-09-03 15:14] LABS: Anisocytosis 2+ (Not Present); Burr Cells 1+ (Not Present); Hypochromasia Present (Not Present); Ovalocytes 1+ (Not Present); Platelet Estimate Normal (Normal)
[2021-09-03] MEDS: Folic Acid 1 MG TABLET PO SCH (16:13)
[2021-09-03] MEDS ORDERED: SODIUM CHLORIDE/NAHCO3/KCL/PEG 4,000 ML SOLN.RECON PO ONE (17:00)
[2021-09-04 00:12] LABS: Hematocrit 24.7 % (35.3-44.9); Hemoglobin 7.7 g/dL (11.5-15.4)
[2021-09-04 04:35] LABS: Hemoglobin 7.7 g/dL (11.5-15.4)
[2021-09-04 04:36] LABS: Basophils # 0.1 K/mcL (0.0-0.2); Basophils % 0.6 %; Eosinophils # 0.3 K/mcL (0.0-0.6); Eosinophils % 2.5 %; Hematocrit 24.8 % (35.3-44.9); Immature Granulocytes % 1.2 % (0-4); Immature Platelets 9.9 % (1.1-6.1); Lymphocytes % 30.1 %; Mean Corpuscular Hemoglobin 22.1 pg (28.0-33.3); Mean Corpuscular Volume 71.3 fL (83.0-100.0); Monocytes # 0.7 K/mcL (0.0-1.3); Monocytes % 5.3 %; Nucleated Red Blood Cells 0.5 /100 WBC (0); Platelet Count 194 K/mcL (140-400); Red Blood Count 3.48 M/mcL (3.82-4.97); Red Cell Distribution Width 31.4 % (11.5-14.5); Segmented Neutrophils % 60.3 %; White Blood Count 13.3 K/mcL (4.3-11.1)
[2021-09-04 04:40] LABS: Anisocytosis 2+ (Not Present); Platelet Estimate Normal (Normal)
[2021-09-04 04:55] LABS: BUN/Creatinine Ratio 5 (6-26); Blood Urea Nitrogen 2 mg/dL (6-20); Carbon Dioxide 28 mEq/L (23-29); Chloride 102 mEq/L (98-107); Glucose 139 mg/dL (70-105); Magnesium 1.9 mg/dL (1.6-2.6); Osmolality,Calculated 276 (280-300); Phosphorous 2.3 mg/dL (2.7-4.5); Potassium 3.7 mEq/L (3.5-5.1); Sodium 134 mEq/L (136-145); eGFR For African Americans > 60 (> 60); eGFR For Non-African Americans > 60 (> 60)
[2021-09-04] MEDS: Pantoprazole 40 MG in 0.9 % Sodium Chloride Mini Bag 100 ML IVC SCH ×3 (05:15→15:43)
[2021-09-04] MEDS: Nicotine 21 MG PATCH.TD24 TD SCH ×2 (08:18→09:46)
[2021-09-04] MEDS: Folic Acid 1 MG TABLET PO SCH (08:18)
[2021-09-04] MEDS: *HR* Buprenorphine HCl 8 MG TAB.SUBL SL SCH (09:39)
[2021-09-04] MEDS: Nicotine 2 MG GUM BC PRN ×2 (09:45→14:38)
[2021-09-04] MEDS ORDERED: Potassium Phosphate 44 MEQ in 0.9 % Sodium Chloride 250 ML IVPB ONE (11:24)
[2021-09-04 11:36] VITALS: TEMP 98.2
[2021-09-04 12:55] LABS: Bilirubin,Urine Negative (Negative); Blood,Urine Negative (Negative); Clarity,Urine Clear (Clear); Color,Urine Light-Yellow (Yellow); Glucose,Urine (UA) Normal (Normal); Ketones,Urine Negative (Negative); Leukocyte Esterase,Urine Negative (Negative); Nitrite,Urine Negative (Negative); Protein,Urine Negative (Neg-Trace); Specific Gravity,Urine 1.009 (1.010-1.025); Urobilinogen,Urine Normal (Normal)
[2021-09-04 13:23] LABS: Amphetamine Screen,Urine Negative ng/mL (Cutoff=1000); Barbiturate Screen,Urine Negative ng/mL (Cutoff=200); Benzodiazepines Screen,Urine Negative ng/mL (Cutoff=200); Cannabinoid Screen,Urine Positive ng/mL (Cutoff = 50); Cocaine Screen,Urine Negative ng/mL (Cutoff= 300); Opiate Screen,Urine Negative ng/mL (Cutoff=300); Phencyclidine Screen,Urine Negative ng/mL (Cutoff=25)
[2021-09-04 13:26] VITALS: BP 105/73; PULSE 83; O2SAT 96
[2021-09-04 18:00] LABS: Hemoglobin 8.2 g/dL (11.5-15.4)
[2021-09-04] MEDS ORDERED: Insulin LISPRO 300 UNITS/3 ML VIAL SUBQ SCH (18:00)
== END 2021-09-04 20:02 | disposition home or self-care (01) | DRG 253 ==
LOC: 2ANU 16:18 → EMEROOARM 16:18 → SUATTDRO 18:33 → 2ANU 19:53
PROVIDERS: ADMIT Internal Medicine; ATTEND Internal Medicine
PROC: ENDOEBX (2021-09-04 14:45)